=== PATIENT | female | born 1960 | race Caucasian/White ===

== ENCOUNTER 2025-02-02 13:54 | Outpatient (AMB) | payer BC, SELFPAY ==
--- NOTE | 2025-02-02 13:58 | A.OFFVIS_ITS ---
Vital Signs 02/02/25 14:07 Height 5 ft 2 in Weight 120 lb BMI 21.9 BP 134/76 Blood Pressure Location Rt brachial Position Sitting Respiration 16 Pulse 86 Pulse Source Pulse Oximeter Pulse Oximetry (%) 95 Oxygen Delivery Method Room Air Intake Visit Reasons: ENP: Dizziness Masseur/Masseuse Required: No Allergies amoxicillin (From AUGMENTIN) Allergy (Unknown, Unverified 01/15/20 18:45) ?SEVERE DIARRHEA clavulanic acid (From AUGMENTIN) Allergy (Unknown, Unverified 01/15/20 18:45) ?SEVERE DIARRHEA Medication List - Last Reconciled 02/02/25 by Padmini Bojorquez, THOMAS aspirin 81 mg PO DAILY loperamide 2 mg PO Q6H PRN omeprazole 20 mg PO DAILY trazodone 50 mg PO BEDTIME zoledronic sxbv-ledutayh-ymncl 5 mg/100 mL (Reclast) ea IV HPI Comments Details: Edgar is a 65-year-old female patient with a past medical history of hyperlipidemia, prior tobacco use, basal cell carcinoma, lung cancer, presenting today for an evaluation after a sudden onset headache which occurred a couple of weeks ago. She notes that she was at work and had sudden occipital pain to her head, right-sided visual changes including blurriness and difficulty seeing on the right eye and subsequent syncope. Her syncopal episode lasted a few sec and when she was arousable continued to have headache and nausea. She was not somn olent or confused upon awakening. She did go to a [facility] emergency department and had a normal CT of the brain and CTA imaging. They were unsuccessful in attempting a brain MRI due to patient anxiety. They did however repeat a CT of the brain which was again noted to be normal. Over the course of the last couple of weeks since her initial headache episode, she has had intermittent occipital headaches associated with nausea and dizziness. She has not had any further syncopal episodes or visual disturbances. She denies any significant for profound headache history though does note some headaches prior to 30 years ago that she was told were related to hormones. She does not have any prior diagnosis of migraine. She does note some ongoing neck crepitus and discomfort to the neck. Her has suggested going to a chiropractor in the past though she does not currently see anyone for her neck discomfort. Her dizziness is not constant but only isolated to episodes of headache. Social/background: Lives home with her Works as a nurse at [employer] She is a prior tobacco user but does not currently use tobacco Alcohol use: Social/infrequent Substance use: None Sleep: Reports that her sleep is fair. No difficulty staying asleep but has difficulty staying asleep. She gets about 4-5 hours per night wit trazodone. She does snore but denies gasping arousals. [facility] Medical History (Updated 02/02/25 @ 14:56 by Padmini Bojorquez CNP) HLD (hyperlipidemia) GERD (gastroesophageal reflux disease) Insomnia TIA (transient ischemic attack) VBI (vertebrobasilar insufficiency) Dizziness Review of Systems Const All systems reviewed & are unremarkable except as noted in HPI and below Physical Exam Vital Signs: Last Vital Signs Pulse 86 02/02/25 14:07 Resp 16 02/02/25 14:07 BP 134/76 02/02/25 14:07 Pulse Ox 95 02/02/25 14:07 Oxygen Delivery Method Room Air 02/02/25 14:07 BMI result Body Mass Index 21.9 Const Orientation/consciousness: oriented to person, oriented to place and oriented to time Neck Neck: No full ROM and Yes other (Audible crepitus with side to side ROM) Back/Spine/Pelvis Other: Bilateral trapezius tightening Neuro General: oriented to person, oriented to place and oriented to time Cranial nerves: Yes CN's II-XII intact bilaterally Cognition (Neuro): normal cognition Gait exam (Neuro): Normal gait present Motor exam (neuro): 5/5 motor strength present throughout Deep tendon reflexes (DTR's): Right triceps reflex intensity grade: 2+, Left triceps reflex intensity grade: 2+, Rt Biceps (C5, C6): 2+, Left biceps reflex intensity grade: 2+, Right brachioradialis reflex intensity grade: 2+, Left brachioradialis reflex intensity grade: 2+, Right patellar reflex intensity grade: 2+, Left patellar reflex intensity grade: 2+, Right ankle reflex intensity grade: 2+ and Left ankle reflex intensity grade: 2+ Coordination: [id number] test normal Assessment & Plan Assessment & Plan (1) Occipital headache: Code(s): R51.9 - Headache, unspecified Category: Medical (2) Crepitus of cervical spine: Code(s): M24.80 - Other specific joint derangements of unspecified joint, not elsewhere classified Category: Medical (3) New onset of headaches after age 50: Code(s): R51.9 - Headache, unspecified Category: Medical Plan Edgar is a 65-year-old female patient with a past medical history of hyperlipidemia, prior tobacco use, basal cell carcinoma, lung cancer, presenting today for an evaluation after a sudden onset headache which occurred a couple of weeks ago. Since this time, she has had intermittent occipital headaches associated with nausea, ?woozy sensation? and some dizziness. These headaches has been fluctuating but not persistent. She does note some ongoing neck pain and tightness to her trapezius muscles but has not sought out medical attention for these yet. She does have some crepitus on exam and significant trigger points to her upper trapezius muscles. Her CT and CTA imaging were reassuring making CVA and other vascular etiologies such as dissection less likely. Still could not fully rule out a reversible vasoconstriction or cervicogenic headache. Possibly migraine versus occipital neuralgia. She is agreeable to try an MRI but an open MRI with oral Ativan prior to the procedure. I will place orders for this. I will order brain MRI and C-spine MRI and follow up with her after these images. -Open MRI (brain with and without contrast and cervical spine without contrast) with po ativan prior to imaging -follow up after the MRI study -patient would like to hold off on any treatment for now. Could consider verapamil if headaches persist. Orders: Orders MR head/brain wo/w con Today R51.9 - Headache, unspecified MR cervical spine wo con Today M24.80 - Other specific joint derangements of unspecified joint, not elsewhere classified, R51.9 - Headache, unspecified Medications: New lorazepam Take 1/2hr prior to your scheduled MRI 1 mg PO ONCE 1 tab 0RF anxiety Coding Level of Care Code New Pt Level 4 (23249) Diagnoses Occipital headache R51.9 Crepitus of cervical spine M24.80 New onset of headaches after age 50 R51.9
[2025-02-02 14:07] VITALS: BP 134/76; PULSE 86; RESP 16; O2SAT 95; BMI 21.9
--- OUTSIDE RECORDS SUMMARY | 2025-02-02 16:22 | XMS_ITS | Clinical Summary ---
Author Organization [address] Address [address] [place] [phone] Phone Care Team Providers Care Tapper Helper Name Role Phone Senthil Urbano MD Primary Care Provider Allergies Active Allergy Reactions Criticality Noted Date Comments Amoxicillin-Pot Clavulanate Diarrhea Medium 09/25/19 13 Medications zoledronic acid (RECLAST) 5 mg/100 mL piggyback Inject 5 mg into the vein Once. 12/26/2023 Active acetaminophen (TYLENOL) 500 mg capsule Take 2 Capsules by mouth as needed. Active multivitamin (MULTIPLE VITAMINS ORAL) Take by mouth. Active calcium carb/vit D3/minerals (CALCIUM-VITAMI N D ORAL) Take by mouth. Active traZODone (DESYREL) 50 mg tablet Take 1 tablet (50 mg total) by mouth at bedtime. 90 tablet 1 04/18/2024 Active omeprazole (PriLOSEC) [address] capsule Take 1 capsule (20 mg total) by mouth 2 (two) times a day. 180 capsule 1 04/18/2024 Active albuterol HFA (PROAIR HFA ; PROVENTIL HFA ; VENTOLIN HFA) 90 mcg/actuation inhaler Inhale 2 puffs by mouth every 4 (four) hours if needed for wheezing. 6.7 g 1 10/17/2024 Active loperamide (IMODIUM A-D) 2 mg tablet Take 1 tablet (2 mg total) by mouth every other day. Active aspirin 81 mg EC tablet Take 1 tablet (81 mg total) by mouth 1 (one) time each day. Active Active Problems Problem Noted Date Diagnosed Date History of basal cell carcinoma 10/16/2024 Adenocarcinoma of lower lobe of right lung (CMS/HCC V24, CMS/HCC V28) 10/16/2024 History of lung cancer 07/21/2024 Assessment & Plan (01/26/2025 4:35 PM EDT): 64-year-old female who had a right lower lobe superior segmentectomy in November 2022 for a stage Ia adenocarcinoma and a minimally invasive adenocarcinoma. Her most recent surveillance CT scan performed in December 2024 shows no new or worsening pulmonary nodules or mediastinal lymph adenopathy to suggest recurrence or new disease. Her chest CT intervals will now be increased to 12-month intervals with her next chest CT scan using low-dose technique due in December 2025 and have a visit at the thoracic surgery department thereafter to discuss results. Assessment & Plan (07/21/2024 10:18 AM EDT): Ms. Arnold is a 64-year-old female who had a right lower lobe superior segmentectomy in November 2022 for a stage Ia adenocarcinoma and a minimally invasive adenocarcinoma. The patient's most recent surveillance scan performed in June 2024 shows no new or worsening pulmonary nodule, or thoracic adenopathy, to suggest recurrence or new disease. We will continue with routine chest CT surveillance the next of which will be in 6 months, December 2024. The patient will have a follow-up visit after as part of her surveillance protocol. Insomnia 04/18/2024 H/O basal cell carcinoma excision 04/18/2024 Mild intermittent asthma without complication Multiple thyroid nodules 04/18/2024 Malignant basal cell neoplasm of skin 03/14/2024 Overview (03/14/2024): IMO update Gastroesophageal reflux disease without esophagi tis 04/18/2023 Assessment & Plan (05/22/2024 8:37 AM EST): Reflux HO given and suggestions for dietary changes made Change PPI to Pantoprazole 40mg BID] Dissolve Carafate in small amount of water and drink as a slurry QID prn Avoid NSAID's EGD Discussed with patient indications for procedure as well as risks of bleeding, infection, risk of perforation and reaction to anesthesia. Patient is aware of risk of missed lesions. Indications including screening for potential pre-malignant lesions and attempting to remove them. General: Patient aware needs a ride home Nor to have liquids for at least three hours before procedure. Patient understands and would like to proceed Osteoporosis without current pathological fractu re 04/18/2023 Lung nodules 11/27/2022 Overview (03/14/2024): Last Assessment & Plan: 62-year-old woman current smoker who had her baseline low-dose CT scan of the chest showing a 12 mm cystic groundglass nodule with a 5 mm solid component and a slightly superior to this similar groundglass nodule with a solid component of 8 mm which is spiculated. I do think these could be considered 1 nodule and they do look suspicious to me for a lipidic type lung cancer. I had a long discussion with her about the findings on her CAT scan as described in HPI. We also discussed pulmonary nodules in general and how their size, shape, and car changer time affect are level of suspicion for malignancy. Again I think this is suspicious due to the mixed groundglass solid appearance as well as the size of the solid components when taking that in the context of a family history of lung cancer. I did discuss options with her of observation versus biopsy versus surgery and ultimately she chose surgery after discussing the risks and benefits of each of these options. I also discussed the diagnosis, staging, and treatment of lung cancer which she seemed understand. Plan then will be for navigational bronchoscopy with dye marking and da Davis right lower lobe wedge resection possible lobectomy in the coming weeks. Arthritis of carpometacarpal (CMC) joint of righ t thumb 07/02/2022 Ganglion cyst of wrist, right 07/02/2022 Pancreatic calcification 11/04/2014 Overview (03/14/2024): Seen on CT Apr, 2014. Irritable bowel syndrome 10/02/2014 Tobacco use disorder 06/07/2012 Diverticulitis of colon without hemorrhage 04/09 Overview (03/14/2024): Incidental finding at colonoscopy 04/09/2012. Major depressive disorder 04/04/2012 Elevated cholesterol 01/24/2012 Encounters Date Type Department Care Team Description 01/26/2025 10:30 AM EDT Office Visit Thoracic Surgery - [place] [address] [facility] [address] [place] [phone] Everardo Mcdonough PA History of lung cancer (Primary Dx) 01/19/2025 2:56 PM EDT - 01/19/2025 11:59 PM EDT Hospital Encounter [facility] CT Scan [address] [place] [phone] History of lung cancer Discharge Disposition: Home or Self Care 12/22/2024 Telephone Adult Medicine [address] [phone] Senthil Urbano MD 12/18/2024 8:15 AM EDT Office Visit Adult Medicine [facility] [address] [place] [phone] Senthil Urbano MD Hospital discharge follow-up (Primary Dx); Dizziness; Postural dizziness; VBI (vertebrobasilar insufficiency); TIA (transient ischemic attack) from Last 3 Months Immunizations Immunization Administration Dates Next Due Hep B, Unspecified 12/06/2012 Influenza Quadravalent, MDCK , 0.5ml, preservative free (Flucelvax) 6mo and older 02/24/2022 Influenza trivalent, 0.5mL, preservative free (Fluarix; FluLaval; Fluzone) ages 6mo and older (Afluria) 3 years and older 01/31/2017 MMR, measles mumps and rubel la Live (Priorix; M-M-R II) 12mo and older 01/24/2013,12/16/2012 Measles 12/06/2012 Mumps 12/06/2012 Pfizer (ages 12 & older) Bivalent, COVID-19 02/28 Pfizer SARS-CoV-2 COVID-19, mRNA, LNP-S, preservative free 05/24/2020 Tdap Tetanus diptheria acell ular pertussis (Boostrix; Adacel) 7yo and older 04/18/2020,01/23/2012 Varicella live (Varivax) 12mo and older 12/07/19 13 Zoster recombinant (Shingrix) 19yo and older Surgical History Surgery Date Site/Laterality Comments HYSTERECTOMY 2004 PROCEDURE: HISTORICAL HYSTERECTOMY; COMMENT: LIDIA/BSO TONSILLECTOMY PROCEDURE: HISTORICAL TONSILLECTOMY APPENDECTOMY PROCEDURE: GA APPENDECTOMY SINUS SURGERY 2005 PROCEDURE: GA UNLISTED PROCEDURE ACCESSORY SINUSES; COMMENT: secondary to root canal perf COLONOSCOPY 04/09/2012 PROCEDURE: HISTORICAL COLONOSCOPY; COMMENT: 10 mm rectal polyp: Tubular adenoma. COLONOSCOPY 06/14/2017 PROCEDURE: HISTORICAL COLONOSCOPY; COMMENT: Dr. [email or web address]; no polyps. Diverticulosis noted. Colonoscopy indicated in 5 years. OTHER SURGICAL HISTORY 12/26/2022 Right PROCEDURE: GA THORACOSCOPY W/THERA WEDGE RESEXN INITIAL UNILAT; COMMENT: RLL wedge, poss lobe Medical History Medical History Date Comments Shinginnyes DX:Shingles Historical Medical DX DX:Basal c ell cancer; COMMENT: face Diverticulosis of colon (wit hout mention of hemorrhage) 04/09/2012 DX:Diverticulosis of colon (without mention of hemorrhage) Pancreatic calcification 11/04/2014 DX:Panc reatic calcification; COMMENT: Seen on CT Apr, 2014. Family history of melanoma DX:Fa constantin history of melanoma; COMMENT: mother History of colon polyps 04/09/2012 DX:Histo ry of colon polyps; COMMENT: CN 04/09/2012, 10 mm rectal polyp: Tubular adenoma. Next CN in 5 yrs. Adenocarcinoma, lung, right (CMS/HCC V24, CMS/HCC V28) 04/18/2023 DX:Adenocarcinoma, lung, rig ht (HCC) Osteoporosis History of IBS Family History Medical History Relation Name Comments COPD Father COPD Brain cancer Maternal Grandfather young a t passing, under age 50 Breast cancer Maternal Grandmother 60s bilat Breast cancer Mother Lung cancer Mother 2003 Melanoma Mother Uterine cancer Mother Colon cancer Mother's side 60s; maternal aunt Ovarian cancer Neg Hx Relation Name Status Comments Father COPD Maternal Grandfather Maternal Grandmother 60s bilat Mother lung CA Mother's side Paternal Grandfather Paternal Grandmother Sister Alive Son 1 Teja Alive healthy Son 2 Josh Alive healthy Son 3 Dalton Alive healthy Social History Tobacco Use Types Packs/Day Years Used Date Smoking Tobacco: Former Cigarettes 0.1 44 0 04/30/1978 - 04/30/2022 Smokeless Tobacco: Never Tobacco Cessation:Counseling Given: Not Answered Alcohol Use Standard Drinks/Week Comments Yes 2.5 (1 standard drink = 0.6 oz p ure alcohol) Housing Instability Answer Date Recorde d Are you worried that in the next 2 months you may not have stable housing? No 10/13/2024 Food Access & Nutrition Answer Date Rec orded Do you have access to a vari ety of food including fruits and vegetables? Yes 10/13/2024 Access to Healthcare Answer Date Record ed Within the last 3 months, annamaria patel many times did you visit the emergency department for your medical care? 0 10/13/2024 Health Literacy Answer Date Recorded How often do you need to hav e someone help you when you read instructions, pamphlets, or other written material from your doctor or pharmacy? Never 10/13/2024 Caregiver: How often do you need to have someone help you when you read instructions, pamphlets, or other written material from your doctor or pharmacy? Not on file 10/13/2024 Financial Risk Answer Date Recorded How hard is it for you to pa y for the very basics like food, housing, medical care, and air conditioning / heating? Not very hard 10/13/2024 Transportation Answer Date Recorded Has the lack of transportati on kept you from meetings, work, or from getting things needed for daily living? No Has the lack of transportati on kept you from medical appointments or from getting medications? No 10/13/2024 Social Isolation Answer Date Recorded How often do you feel lonely or isolated from th ose around you? Never 10/13/2024 Food Risk Answer Date Recorded Within the past 12 months we worried whether our food would run out before we got money to buy more. Never true 10/13/2024 Within the past 12 months th e food we bought just didn't last and we didn't have money to get more. Never true 10/13/2024 Dependent Care Answer Date Recorded Do you need help finding or paying for care for your loved ones. For example, children's book author or elderly care for an older adult? No 10/13/2024 Education Answer Date Recorded Do you think completing more education or training, like finishing a GED, going to college, or learning a trade, would be helpful for you? N/A 10/13/2024 Employment and Income Answer Date Recor ded During the last four weeks, have you been actively looking for work? No 10/13/2024 Living Situation Answer Date Recorded What is your living situation? Unrecognized valu e 10/13/2024 Interpersonal Safety Answer Date Record ed Physical Abuse Unrecognized value 07/10/2024 Verbal Abuse Unrecognized value 07/10/2024 Comments No Sex and Gender Information Value Date Recorded Sex Assigned at Female 06/27/2024 12:20 PM EST Legal Sex Female 12:16 AM EST Gender Identity Female 06/27/2024 12:20 PM EST Sexual Orientation Straight 07/09/2024 4: 23 PM EDT Obstetrics History Last Filed Vital Signs Vital Sign Reading Time Taken Comments Blood Pressure 129/78 01/26/2025 10:13 AM EDT Pulse 83 01/26/2025 10:13 AM EDT Temperature 36.6 C (97.9 F) 01/26/2025 10:13 AM EDT Respiratory Rate 14 01/26/2025 10:13 AM EDT Oxygen Saturation 95% 01/26/2025 10:13 AM EDT Inhaled Oxygen Concentration - - Weight 57.2 kg (126 lb) 01/26/2025 10:13 AM EDT Height 154.9 cm (5' 1 ) 01/26/2025 10:13 AM EDT Body Mass Index 23.81 01/26/2025 10:13 AM EDT Plan of Treatment Upcoming Encounters Date Type Department Care Team (Late st Contact Info) Description 03/05/2025 3:15 PM EST Appointment Bone Density - [address] [place] [address] 03/05/2025 4:30 PM EST Office Visit Endocrinology - [address] [phone] Janny Zuniga PA [address] [place] [phone] 03/19/2025 1:30 PM EST Ancillary Procedure [facility] [address] [facility] [address] [place] [phone] 04/20/2025 9:00 AM EST Office Visit Adult Medicine [facility] [address], [place] [phone] Senthil Urbano MD [address] [place] [address] Health Maintenance Due Date Last Done Comments Hepatitis B Vaccines (2 of 3 - 19+ 3-dose series) 01/03/2013 12/06/2012 Breast Cancer Screening 06/23/2021 06/23/19, 06/10/2019, 06/05/2018, Additional history exists COVID-19 Vaccine (8 - Pfizer risk ) 12/29/2024 03/11/2024, 02/03/2023, 03/17/2022, Additional history exists Influenza Vaccine (#1) 2024 , 02/03/2023, 02/24/2022, Additional history exists Falls Risk Assessment 07/10/2025 07/10/2024 Social Influencers of Health Screening 10/13/2025 10/13/2024 Colorectal Cancer Screening: Colonoscopy 03/20/2028 03/20/2023 Cholesterol Screening (Lipid Panel) 10/17/2029 10/17/2024, 09/01/2022 DTaP,Tdap,and Td Vaccines (3 - Td or Tdap) 04/18/2030 04/18/2020, 01/23/2012 Osteoporosis Screening (Bone Density Screening) 01/17/2033 01/17/2023 Varicella Vaccines Aged Out 12/06/2012 No longer eligible based on patient's age to complete this topic MMR Vaccines Aged Out 01/24/2013, 12/16/2012 No lo nger eligible based on patient's age to complete this topic Hepatitis C Screening Completed 02/08/2015 Zoster Vaccines Completed 12/01/2022, 09/28, 12/06/2012 Pneumococcal Vaccine: 50+ Years Completed 03/16/2023 RSV Immunization Adult Patients Completed 03/16/2023 Depression Screening Completed 10/13/2024 HIB Vaccines Aged Out No longer eligi ble based on patient's age to complete this topic HPV Vaccines Aged Out No longer eligi ble based on patient's age to complete this topic Hepatitis A Vaccines Aged Out No long er eligible based on patient's age to complete this topic IPV Vaccines Aged Out No longer eligi ble based on patient's age to complete this topic Meningococcal ACWY Vaccine Aged Out N o longer eligible based on patient's age to complete this topic Meningococcal B Vaccine Aged Out No l onger eligible based on patient's age to complete this topic RSV Immunization Patients Under 20 months Aged Out No longer eligible based on patient's age to complete this topic Procedures Procedure Name Priority Date/Time Associated Diagnosis Comments CT CHEST WO CONTRAST Routine 01/19/2025 4:00 PM EDT History of lung cancer LIPID PANEL WITH REFLEX TO DIRECT LDL Routine 10/17/2024 1:39 PM EDT Physical exam Gastroesophageal reflux disease without esophagitis Irritable bowel syndrome with diarrhea Insomnia, unspecified type Age-related osteoporosis without current pathological fracture History of basal cell carcinoma Mild intermittent asthma without complication Adenocarcinoma of lower lobe of right lung (CMS/HCC V24, CMS/HCC V28) Multiple thyroid nodules Screening for deficiency anemia Screening for diabetes mellitus (DM) Screening for hyperlipidemia COLONOSCOPY Routine 03/20/2023 DXA BONE DENSITY STUDY 1+ SITS AXIAL SKEL Routine 01/17/2023 11:38 AM EDT Encounter for general adult medical examination without abnormal findings Encounter for screening for osteoporosis DX MAMMO INCL CAD UNI Routine 06/23/2019 10:34 AM EST Other abnormal and inconclusive findings on diagnostic imaging of breast HEPATITIS C SCREENING Routine 02/08/2015 from Last 3 Months or Most Recently Relevant to Health Maintenance Results * CT Chest wo Contrast (01/19/2025 4:00 PM EDT) Anatomical Region Laterality Modality Body Computed Tomogra phy 01/22/2025 8:15 AM EDT Impressions 01/22/2025 8:19 AM EDT Stable postsurgical changes in the right lung. No recurrent or metastatic disease in the chest. -------- FINAL REPORT -------- Dictated By: ILIR CHADWICK Dictated Date: 01/22/2025 08:15 ET Assigned Physician: ILIR CHADWICK Reviewed and Electronically Signed By: ILIR CHADWICK Signed Date: 01/22/2025 08:19 ET Workstation ID: [id number] Transcribed By: Self Edit Transcribed Date: 01/22/2025 08:15 ET Narrative 01/22/2025 8:19 AM EDT PROCEDURE: Chest CT INDICATION: Lung cancer TECHNIQUE: Chest CT without contrast. Multi planar reformats were created and interpreted. The examination was performed utilizing dose reduction techniques. Total DLP 160 COMPARISON: 06/30/2024. FINDINGS: LUNGS/PLEURA: Central airways are patent. Stable postsurgical change in the right lung related to prior partial right lower lobectomy. Biapical pleural parenchymal scarring, unchanged. Scarring at the posterior aspect of the right apex and in the right lower lobe is also unchanged. Emphysema. No new or suspicious pulmonary nodules. No pleural effusion or pneumothorax. MEDIASTINUM: Thyroid gland is within normal limits. No mediastinal or hilar lymphadenopathy. Esophagus is normal. Cardiac chambers are normal in size. No pericardial effusion. Minimal coronary artery calcifications. CHEST WALL: No axillary lymphadenopathy or superficial hematoma. UPPER ABDOMEN:Calcifications around the pancreatic head, most likely related to remote pancreatitis BONES: No suspicious lytic or blastic lesions. Scattered degenerative changes seen throughout the bones. Procedure Note Ilir Chadwick MD - 01/22/2025 PROCEDURE: Chest CT INDICATION: Lung cancer TECHNIQUE: Chest CT without contrast. Multi planar reformats were createdand interpreted. The examination was performed utilizing dose reductiontechniques. Total DLP 160 COMPARISON: 06/30/2024. FINDINGS: LUNGS/PLEURA: Central airways are patent. Stable postsurgical change inthe right lung related to prior partial right lower lobectomy. Biapicalpleural parenchymal scarring, unchanged. Scarring at the posterior aspectof the right apex and in the right lower lobe is also unchanged.Emphysema. No new or suspicious pulmonary nodules. No pleural effusionor pneumothorax. MEDIASTINUM: Thyroid gland is within normal limits. No mediastinal orhilar lymphadenopathy. Esophagus is normal. Cardiac chambers are normalin size. No pericardial effusion. Minimal coronary arterycalcifications. CHEST WALL: No axillary lymphadenopathy or superficial hematoma. UPPER ABDOMEN:Calcifications around the pancreatic head, most likelyrelated to remote pancreatitis BONES: No suspicious lytic or blastic lesions. Scattered degenerativechanges seen throughout the bones. IMPRESSION: Stable postsurgical changes in the right lung. No recurrent or metastaticdisease in the chest. -------- FINAL REPORT -------- Dictated By: ILIR CHADWICK Dictated Date: 01/22/2025 08:15 ET Assigned Physician: ILIR CHADWICK Reviewed and Electronically Signed By: ILIR CHADWICK Signed Date: 01/22/2025 08:19 ET Workstation ID: [id number] Transcribed By: Self Edit Transcribed Date: 01/22/2025 08:15 ET Lizzy [facility] [place] PROCEDURES Final Resul t * (ABNORMAL) Lipid panel with reflex to direct LDL (10/17/2024 1:39 PM EDT) Cholesterol 249(H) 0 - 200 mg/dL LAB CHEMISTRY METHOD 10/17/2024 5:12 PM EDT [facility] Triglycerides 75 0 - 150 mg/dL LAB CHEMISTRY METHOD 10/17/2024 5:12 PM EDT [facility] HDL 138 >=40 mg/dL LAB CHEMISTRY METHOD 10/17/2024 5:12 PM EDT [facility] Comment:Results verified by repeat testing LDL Calculated 96 0 - 100 mg/dL LAB CHEMISTRY METHOD 10/17/2024 5:12 PM EDT [facility] VLDL Cholesterol Emanuel 15 mg/dL LAB CHEMISTRY METHOD 10/17/2024 5:12 PM T [facility] Non HDL Chol. (LDL+VLDL) 111 <145 mg/dL LAB CHEMISTRY METHOD 10/17/2024 5:12 PM EDT [facility] Chol/HDL Ratio 1.8 0.0 - 4.4 LAB CHEMISTRY METHOD 10/17/2024 5:12 PM EDT [facility] Blood Venous blood specimen / Unknown Venipuncture / Unknown 10/17/2024 1:39 PM EDT 10/17/2024 1:39 PM EDT Senthil Urbano MD LAB BLOOD ORDERABLES Final Result [facility] [address] [place] [address], [place] [phone] * Colonoscopy (03/20/2023) Colonoscopy no interpretation , abstracted Anatomical Region Laterality Modality Other Historical Provider HEALTH MAINTENANCE Final Result * DXA BONE DENSITY STUDY 1+ SITS AXIAL SKEL (01/17/2023 11:38 AM EDT) Anatomical Region Laterality Modality Bone Densitometr y 09/01/2022 8:27 AM EDT Narrative 01/17/2023 2:27 PM EDT BONE DENSITY Lumbar Spine T-score is -2.2 (SD relative to 20-29 y/o adult) Z-score is -0.6 (SD relative to age matched peers) This is consistent with osteopenia by criteria defined by the WHO. Left Hip T-score is -2.6 Z-score is -1.2 This is consistent with osteoporosis by criteria defined by the WHO. Comparison exam(s): significant decrease in bone density of hip when compared to most recent bone density examination Confidence level is +/-95%. Impression: Based on the World Health Organization criteria, Mustapha Arnold should be classified as having osteoporosis. The [facility] Department of Internal Medicine recommends using National Osteoporosis Foundation (NOF) guidelines in treatment decisions related to osteoporosis. NOF guidelines suggest considering treatment for postmenopausal women and men aged 50 or older presenting with the following: History of hip or vertebral fracture. T-score less than or equal to -2.5 (DXA) at the femoral neck, total hip, or spine, after appropriate evaluation to exclude secondary causes. Low bone mass (T-score between -1.0 and -2.5 at the femoral neck or spine) AND a 10-year probability of a hip fracture greater than or equal to 3% OR a 10-year probability of a major osteoporosis-related fracture greater than or equal to 20% based on the [place]-adapted WHO algorithm Please note that all treatment decisions require clinical judgment and consideration of individual patient factors, including patient preferences, co-morbidities, previous drug use, risk factors not captured in the FRAX model (e.g., frailty, falls, vitamin D deficiency, increased bone turnover, interval significant decline in bone density) and possible under- or over-estimation of fracture risk by FRAX. Procedure Note Bren Galicia MD - 06/05/2023 BONE DENSITY Lumbar Spine T-score is -2.2 (SD relative to 20-29 y/o adult) Z-score is -0.6 (SD relative to age matched peers) This is consistent with osteopenia by criteria defined by the WHO. Left Hip T-score is -2.6 Z-score is -1.2 This is consistent with osteoporosis by criteria defined by the WHO. Comparison exam(s): significant decrease in bone density of hip whencompared to most recent bone density examination Confidence level is +/-95%. Impression: Based on the World Health Organization criteria, Mustapha Arnold should beclassified as having osteoporosis. The [facility] Department of Internal Medicine recommendsusing National Osteoporosis Foundation (NOF) guidelines in treatmentdecisions related to osteoporosis. NOF guidelines suggest consideringtreatment for postmenopausal women and men aged 50 or older presentingwith the following: History of hip or vertebral fracture. T-score less than or equal to -2.5 (DXA) at the femoral neck, total hip,or spine, after appropriate evaluation to exclude secondary causes. Low bone mass (T-score between -1.0 and -2.5 at the femoral neck or spine)AND a 10-year probability of a hip fracture greater than or equal to 3% ORa 10-year probability of a major osteoporosis-related fracture greaterthan or equal to 20% based on the [place]-adapted WHO algorithm Please note that all treatment decisions require clinical judgment andconsideration of individual patient factors, including patientpreferences, co-morbidities, previous drug use, risk factors not capturedin the FRAX model (e.g., frailty, falls, vitamin D deficiency, increasedbone turnover, interval significant decline in bone density) and possibleunder- or over-estimation of fracture risk by FRAX. us Senthil Urbano MD IMG DXA PROCEDURES Final Re sult * DX MAMMO INCL CAD UNI (06/23/2019 10:34 AM EST) Anatomical Region Laterality Modality Mammography 06/11/2019 9:15 AM EST Narrative 06/23/2019 10:50 AM EST This is a summary report. The complete report is available in the patient's medical record. If you cannot access the medical record, please contact the sending organization for a detailed fax or copy. Exam: Unilateral right digital diagnostic mammogram and right breast ultrasound. History: Call back Findings: Patient is recalled from a screening mammogram performed 06/10/2019 for additional imaging on the right. 90 ML and spot compression MLO views were performed. The asymmetry changes configuration on the MLO view where it has similar appearance to prior examinations as far back as 03/14/2012. No mass or architectural distortion is apparent. As a precaution, ultrasound evaluation performed in the upper outer quadrant. No solid or cystic lesion identified. Impression: No suspicious findings on callback imaging. Routine screening mammography recommended. BI-RADS 1-negative Procedure Note Toña Samson MD - 04/18/2022 This is a summary report. The complete report is available in thepatient's medical record. If you cannot access the medical record, pleasecontact the sending organization for a detailed fax or copy. Exam: Unilateral right digital diagnostic mammogram and right breastultrasound. History: Call back Findings: Patient is recalled from a screening mammogram performed06/10/2019 for additional imaging on the right. 90 ML and spot compressionMLO views were performed. The asymmetry changes configuration on the MLO view where it has similarappearance to prior examinations as far back as 03/14/2012. No mass orarchitectural distortion is apparent. As a precaution, ultrasoundevaluation performed in the upper outer quadrant. No solid or cysticlesion identified. Impression: No suspicious findings on callback imaging. Routine screeningmammography recommended. BI-RADS 1-negative Tessie Urban MD IMG BI PROCEDURES Final Re sult * Hepatitis C Screening (02/08/2015) Hepatitis C Screening abstracted Historical Provider HEALTH MAINTENANCE Final Result from Last 3 Months or Most Recently Relevant to Health Maintenance Additional Health Concerns Infection Onset Date Last Indicated Enteropathogenic E. coli (EPEC) 07/31/2024 07/31/2024 [place] [phone] [facility] [place] [phone] Care Teams Tapper Helper Relationship Specialty Start Date End Date Senthil Urbano MD [address] [place] [address] PCP - General Internal Medicine 12/27/21
--- OUTSIDE RECORDS SUMMARY | 2025-02-02 16:22 | XMS_ITS | Clinical Summary ---
Author Organization [facility] Address [address] [place] [address] Care Team Providers Care Asphalt Tamper Name Role Phone Unavailable Primary Care Provider Unavailabl e Social History Tobacco Use Types Packs/Day Years Used Date Smoking Tobacco: Never Assessed Sex and Gender Information Value Date Recorded Sex Assigned at Not on file Gender Identity Not on file Sexual Orientation Not on file Job Start Date Occupation Industry Not on file Not on file Not on file Plan of Treatment Health Maintenance Due Date Last Done Comments Hepatitis C Screening 1960 Depression Screening 1972 Preventative Health Evaluation 01/28/1978 Cervical Cancer Screening (Pap Smear) 01/28/1981 Colon Cancer Screening (Colonoscopy) 01/28/2005 Breast Cancer Screening (Mammogram) 01/28/2010 Shingrix-Zoster Vaccine (2 of 2) 12/07/2020 10/12/2020 COVID-19 Vaccine ( season) 2024 08/09/2021, 02/25/2021, 05/24/2020, Additional history exists Influenza Vaccine (#1) 2024 02/24/2022, 2016 Fall Risk Assessment 01/28/2025 Osteoporosis Screening (DEXA Scan) 01/28/2025 Pneumococcal Vaccine (1 of 1 - PCV) 01/28/2025 DTap / Tdap / Td (3 - Td or Tdap) 04/18/2030 04/18/2020, 01/23/2012 RSV Adult > 60+ Yrs or (1 - 1-dose 75+ series) 01/28/2035 Hepatitis B Vaccines Aged Out No long er eligible based on patient's age to complete this topic Pneumococcal Vaccine Aged Out No long er eligible based on patient's age to complete this topic RSV Ped < 20 months Aged Out No longe r eligible based on patient's age to complete this topic [facility] [place] [phone]
--- OUTSIDE RECORDS SUMMARY | 2025-02-02 16:22 | XMS_ITS ---
Author Name [facility] Organization Unknown Care Team Organization Name Specialty Phone Email Start Date End Da te [facility] Termed, PROVIDER Primary Care 03/07/202211/28
== END 2025-02-02 14:57 | disposition home or self-care (01) ==
LOC: HO.HSM 13:55
PROVIDERS: PCP Internal Medicine; Referring Provider Internal Medicine; Visit Provider Nurse Practitioner
DX: R51.9 Headache, unspecified (principal); M24.80 Other specific joint derangements of unspecified joint, not elsewhere classified
CPT/HCPCS: 99204

== ENCOUNTER 2025-04-06 10:33 | Outpatient (AMB) | payer BC, SELFPAY ==
[2025-04-06 10:43] VITALS: BP 108/70; PULSE 74; RESP 16; O2SAT 97; BMI 22.7
--- NOTE | 2025-04-06 10:43 | A.OFFVIS_ITS ---
Vital Signs 04/06/25 10:43 Height 5 ft 1 in Weight 120 lb BMI 22.7 BP 108/70 Blood Pressure Location Rt brachial Position Sitting Respiration 16 Pulse 74 Pulse Source Pulse Oximeter Pulse Oximetry (%) 97 Oxygen Delivery Method Room Air Intake Visit Reasons: MRI results Allergies amoxicillin (From AUGMENTIN) Allergy (Unknown, Verified 04/06/25 10:45) ?SEVERE DIARRHEA clavulanic acid (From AUGMENTIN) Allergy (Unknown, Verified 04/06/25 10:45) ?SEVERE DIARRHEA HPI Comments Details: Edgar is a 65-year-old female patient with a past medical history of hyperlipidemia, prior tobacco use, basal cell carcinoma, lung cancer, presenting today for a follow up evaluation for a sudden onset occipital headache associated with dizziness and blurriness of her eyes. She did have syncope upon initial presentation of the headache. She did go to a [facility] emergency department and had a normal CT of the brain and CTA imaging. They were unsuccessful in attempting a brain MRI due to patient anxiety. They did however repeat a CT of the brain which was again noted to be normal. When I saw her at her initial visit on 02/02/2025, her headaches were intermittent but frequent occurring in the occipital area associated with nausea and dizziness but she denied any further syncope or visual disturbances. I did order an MRI of the brain with and without which was performed 03/06/2025 at [facility] but this did not show any significant structural pathology as cause for her headache. Since our last visit, her headaches has been improving and are now occurring 2-3 times per week still to the occipital area often triggered by stress. She does not have any further episodes of syncope or vision changes. She still has some mild dizziness. Headaches have been responsive to Advil or Tylenol which she uses sparingly. Social/background: Lives home with her Works as a nurse at [employer] She is a prior tobacco user but does not currently use tobacco Alcohol use: Social/infrequent Substance use: None Sleep: Reports that her sleep is fair. No difficulty staying asleep but has difficulty staying asleep. She gets about 4-5 hours per night wit trazodone. She does snore but denies gasping arousals. Prior workup: CONCLUSION: 1. No evidence of intracranial metastasis. 2. Scattered nonspecific white matter changes, could be sequelae of mild chronic microvascular ischemic disease. No acute or large territorial infarct. PFSH Medical History (Updated 02/02/25 @ 14:56 by Padmini Bojorquez CNP) HLD (hyperlipidemia) GERD (gastroesophageal reflux disease) Insomnia TIA (transient ischemic attack) VBI (vertebrobasilar insufficiency) Dizziness Review of Systems Const All systems reviewed & are unremarkable except as noted in HPI and below Physical Exam Vital Signs: Last Vital Signs Pulse 74 04/06/25 10:43 Resp 16 04/06/25 10:43 BP 108/70 04/06/25 10:43 Pulse Ox 97 04/06/25 10:43 Oxygen Delivery Method Room Air 04/06/25 10:43 BMI result Body Mass Index 22.7 Const Orientation/consciousness: oriented to person, oriented to place and oriented to time Neck Neck: No full ROM and Yes other (Audible crepitus with side to side ROM) Back/Spine/Pelvis Other: Bilateral trapezius tightening Neuro General: oriented to person, oriented to place and oriented to time Cranial nerves: Yes CN's II-XII intact bilaterally Cognition (Neuro): normal cognition Gait exam (Neuro): Normal gait present Motor exam (neuro): 5/5 motor strength present throughout Deep tendon reflexes (DTR's): Right triceps reflex intensity grade: 2+, Left triceps reflex intensity grade: 2+, Rt Biceps (C5, C6): 2+, Left biceps reflex intensity grade: 2+, Right brachioradialis reflex intensity grade: 2+, Left brachioradialis reflex intensity grade: 2+, Right patellar reflex intensity grade: 2+, Left patellar reflex intensity grade: 2+, Right ankle reflex intensity grade: 2+ and Left ankle reflex intensity grade: 2+ Coordination: [id number] test normal Assessment & Plan Assessment & Plan (1) New onset of headaches after age 50: Code(s): R51.9 - Headache, unspecified Category: Medical (2) Occipital headache: Code(s): R51.9 - Headache, unspecified Category: Medical Plan Edgar is a 65-year-old female patient with a past medical history of hyperlipidemia, prior tobacco use, basal cell carcinoma, lung cancer, presenting today for a follow up evaluation for a sudden onset occipital headache associated with dizziness and blurriness of her eyes. She has had a CT, CTA of the head and neck, and an MRI of the brain with and without contrast all of which has been nondiagnostic. Headaches has been improving overall. She seems to find that they are much more frequently triggered by stress. For now, she does not wish to trial any preventive therapies and [id number] options for abortive measures has been working well. She would like to see me on an as- needed basis. I did suggest trial of magnesium and riboflavin [id number] if she does wish. Medications: Discontinued lorazepam Take 1/2hr prior to your scheduled MRI Discontinued Reason: Patient no longer taking 1 mg PO ONCE 1 tab 0RF anxiety Coding Level of Care Code Est Pt Level 3 (51425) Diagnoses New onset of headaches after age 50 R51.9 Occipital headache R51.9
== END 2025-04-06 10:55 | disposition home or self-care (01) ==
LOC: HO.HSM 10:33
PROVIDERS: PCP Internal Medicine; Visit Provider Nurse Practitioner
DX: R51.9 Headache, unspecified (principal)
CPT/HCPCS: 99213